=== PATIENT | female | born 1985 | race Caucasian/White ===

== ENCOUNTER 2016-05-03 20:03 | Emergency (ER) | payer MEDICAID, OTHER ==
[~2016-05-03] VITALS: Ht 162.6 cm; Wt 56.5 kg
[~2016-05-03 20:03] MED LIST: CIPR500T4 PO; ONDA1TAB16 PO; PERC5TAB12 PO
[2016-05-03 20:06] VITALS: BP 111/80; PULSE 69; RESP 16; TEMP 97.9; O2SAT 100
[2016-05-03] MEDS ORDERED: ACYC200C66 PO (20:34)
--- NOTE | 2016-05-03 20:41 | PD ---
HPI Chief Complaint: Skin Problem Time Seen by Provider: 20:35 Travel History International Travel<30 days: Yes Contact w/Intl Traveler<30days: [place] Country Traveled to: [facility] Traveled to known affect area: No History of Present Illness HPI 30-year-old female presents to the emergency room for evaluation of painful pustular/vesicular rash on the lower lip and left-sided and neck for the past day. Patient states the mouth lesion started first and she believes she may have spread it to her neck accidentally after touching it. Reports rash is painful to the touch and there is some deeper pain underneath. Patient denies fever, chills, nausea, vomiting, and malaise. She has been taking Tylenol for pain. Patient has history of herpes simplex. Never had shingles. PFSH Past Medical History Diminished Hearing: No Reproductive: Yes (ENDOMETRIOSIS) Immunizations Current: Yes Tetanus Vaccination: < 5 Years Influenza Vaccination: No ?: Not LMP: NOW Ovarian Cysts: Yes Social History Alcohol Use: Yes (occ) Tobacco Use: No Substance Use: No Allergies-Medications (Allergen,Severity, Reaction): Coded Allergies: No Known Allergies (Verified , PER IND/AUG ORDERS, 05/03/16) Reported Meds & Prescriptions Reported Meds & Active Scripts Active Acyclovir 200 Mg Cap 200 Mg PO 5 TIMES A DAY 5 Days Review of Systems Except as stated in HPI: all other systems reviewed are Neg Physical Exam Narrative GENERAL: Well-nourished, well-developed female in no acute distress. Afebrile. Ambulatory. SKIN: Warm and dry. There are vesicular and pustular grouped lesions to the left anterior neck. It is tender to palpation. There are also pustular, vesicular, grouped lesions on the lower lip bilaterally. HEAD: Normocephalic. EYES: No scleral icterus. No injection or drainage. NECK: Supple, trachea midline. No JVD or lymphadenopathy. Data Data Last Documented VS Vital Signs Date Time Temp Pulse Resp B/P Pulse Ox O2 Delivery O2 Flow Rate FiO2 05/03/16 20:06 97.9 69 16 111/80 100 MDM Medical Decision Making Medical Screen Exam Complete: Yes Emergency Medical Condition: Yes Medical Record Reviewed: Yes Differential Diagnosis Herpes simplex versus herpes zoster versus folliculitis Narrative Course 30-year-old female presents to the emergency room for evaluation of painful rash on her lower lip and left anterior neck since last night. Patient states rash started on her lip and spread to her neck shortly afterwards. She believes she has spread it to one area through contact. Exam reveals vesicular and pustular grouped lesions to the left anterior neck/chest that are tender to palpation. There are also pustular, vesicular, grouped lesions on the lower lip bilaterally. Physical exam is consistent with herpes simplex, not herpes zoster. Patient will be treated as such. Told to follow up with a primary care physician and return for worsening symptoms. She understands and agrees to plan. Diagnosis Primary Impression: Herpes simplex Referrals: Primary Care Physician Patient Instructions: General Instructions, Oral Herpes Simplex Virus Infections (ED) Additional Instructions: Rest and drink plenty of fluids. Acyclovir as directed, until gone. Follow-up with a primary care physician. Return to the emergency room for worsening symptoms. Med/Other Pt SpecificInfo: Prescription(s) given Scripts Acyclovir 200 Mg [id number] Mg PO 5 TIMES A DAY 5 Days Ref 0 Prov:Arie Hernandez MD 05/03/16 Disposition: 01 DISCHARGE HOME Condition: Stable Bety Chaudhry May 03, 2016 20:41
== END 2016-05-03 20:48 | disposition home or self-care (01) ==
LOC: PHEFT 20:03
DX: B00.1 Herpesviral vesicular dermatitis (principal)
CPT/HCPCS: 99282

== ENCOUNTER 2016-06-10 09:54 | Emergency (ER) | payer MEDICAID, OTHER ==
[~2016-06-10] VITALS: Ht 162.6 cm; Wt 55.0 kg
[~2016-06-10 09:54] MED LIST changes: +ACYC200C66 PO; -CIPR500T4 PO; -ONDA1TAB16 PO; -PERC5TAB12 PO
[2016-06-10 10:09] VITALS: BP 115/81; PULSE 60; RESP 16; TEMP 98; O2SAT 96
[2016-06-10 10:24] LABS: BLOOD, URINE NEG (NEG); GLUCOSE,URINE NEG (NEG); KETONE, URINE 40 mg/dL (NEG); NITRITE,URINE NEG (NEG)
[2016-06-10 10:30] LABS: PH, URINE GREATER/EQUAL 9.0 (5.0-8.5)
[2016-06-10 10:31] LABS: COMMENT (UR) CULT NOT INDICATED; CULTURE IF INDICATED CULT NOT INDICATED; METHOD OF COLLECTION CLEAN CATCH; URINE COLOR YELLOW (YELLW/STRAW)
[2016-06-10] MEDS ORDERED: SODIUM CHLOR 0.9% 1000 ML INJ 1,000 ML IV SCH (10:54)
[2016-06-10 10:59] VITALS: O2SAT 100
[2016-06-10] MEDS ORDERED: MORPHINE SULFATE 4 MG/ML INJ IV PUSH ONE (11:00)
[2016-06-10] MEDS ORDERED: ONDANSETRON HCL 4 MG/2 ML VIAL IVP ONE (11:00)
[2016-06-10] MEDS ORDERED: PANTOPRAZOLE SODIUM 40 MG VIAL IVP ONE (11:00)
[2016-06-10 11:17] LABS: AUTOMATED NEUTROPHIL # 10.4 TH/MM3 (1.8-7.7); BASOPHIL # 0.1 TH/MM3 (0-0.2); BASOPHIL % 1.1 % (0.0-2.0); EOSINOPHIL # 0.1 TH/MM3 (0-0.4); EOSINOPHIL % 0.7 % (0.0-4.0); HEMATOCRIT 41.1 % (35.0-46.0); HEMO FLAGS DIFF FINAL; LYMPH % 4.9 % (9.0-44.0); LYMPHOCYTE # 0.6 TH/MM3 (1.0-4.8); MEAN CELL VOLUME 92.1 FL (80.0-100.0); MEAN CORPUSCULAR HGB CONC 33.7 % (32.0-36.0); MONO % 5.7 % (0.0-8.0); NEUT % 87.6 % (16.0-70.0); PLATELET COUNT 241 TH/MM3 (150-450); RED BLOOD COUNT 4.47 MIL/MM3 (4.00-5.30); RED CELL DISTRIBUTION WIDTH 12.7 % (11.6-17.2); WHITE BLOOD COUNT 11.9 TH/MM3 (4.0-11.0)
[2016-06-10 11:21] LABS: CHLORIDE 107 MEQ/L (98-107); SODIUM (NA) 141 MEQ/L (136-145)
[2016-06-10 11:25] LABS: ANION GAP 8 MEQ/L (5-15); BICARBONATE 26.1 MEQ/L (21.0-32.0); BLOOD UREA NITROGEN 13 MG/DL (7-18)
[2016-06-10 11:28] LABS: ALT (GPT) 22 U/L (10-53); AST (GOT) 19 U/L (15-37); GLOMERULAR FILTRATION RATE 94 ML/MIN (>89)
[2016-06-10 11:29] LABS: TOTAL BILIRUBIN ADULT 0.7 MG/DL (0.2-1.0)
[2016-06-10 11:31] VITALS: BP 117/76; PULSE 66; RESP 17; O2SAT 100
[2016-06-10 11:31] LABS: ALKALINE PHOSPHATASE 43 U/L (45-117)
[2016-06-10] MEDS ORDERED: IOHEXOL 350 MG/ML 10 ML VIAL (for RAD DIAG) IV ONE (11:53)
--- NOTE | 2016-06-10 11:58 | PD ---
HPI Chief Complaint: GI Complaint Time Seen by Provider: 10:45 Travel History International Travel<30 days: Yes Contact w/Intl Traveler<30days: Yes Name of Country Traveled to: [facility] Traveled to known affect area: No History of Present Illness HPI 30-year-old female complains of abdominal pain with nausea vomiting and diarrhea. Patient states that the symptoms started yesterday. Patient states that she had colds wet parking chills intermittently since yesterday. Patient states that she has left in the vomitus and also in the stool. Patient has dysuria and frequency earlier today. Patient states that abdominal pain is cramping pain diffuse over the abdomen. Patient resides any pain radiation. Patient denies any vaginal discharge or bleeding. Patient denies any back pain. On a scale of 1-10 the pain is a 7. PFSH Past Medical History Medical History: Denies Significant Hx Diminished Hearing: No Reproductive: Yes (ENDOMETRIOSIS) Immunizations Current: Yes Tetanus Vaccination: > 5 Years Influenza Vaccination: No ?: Not LMP: 05/31/16 Ovarian Cysts: Yes Social History Alcohol Use: Yes (occ) Tobacco Use: No Substance Use: No Allergies-Medications (Allergen,Severity, Reaction): Coded Allergies: No Known Allergies (Verified , PER IND/AUG ORDERS, 06/10/16) Reported Meds & Prescriptions Reported Meds & Active Scripts Active No Active Prescriptions or Reported Medications Review of Systems General / Constitutional: No: Fever Eyes: No: Visual changes HENT: No: Headaches Cardiovascular: No: Chest Pain or Discomfort Respiratory: No: Shortness of Breath Gastrointestinal: Positive: Nausea, Vomiting, Diarrhea, Abdominal Pain Genitourinary: No: Dysuria Musculoskeletal: No: Pain Skin: No Rash Neurologic: No: Weakness Psychiatric: No: Depression Endocrine: No: Polydipsia Hematologic/Lymphatic: No: Easy Bruising Physical Exam Narrative GENERAL: Well-nourished, well-developed patient. SKIN: Warm and dry. HEAD: Normocephalic. EYES: No scleral icterus. No injection or drainage. NECK: Supple, trachea midline. No JVD or lymphadenopathy. CARDIOVASCULAR: Regular rate and rhythm without murmurs, gallops, or rubs. RESPIRATORY: Breath sounds equal bilaterally. No accessory muscle use. GASTROINTESTINAL: Abdomen soft, nondistended. Patient has moderate diffuse tenderness over the abdomen. No rebound tenderness. No mass. MUSCULOSKELETAL: No cyanosis, or edema. BACK: Nontender without obvious deformity. No CVA tenderness. Data Data Last Documented VS Vital Signs Date Time Temp Pulse Resp B/P Pulse Ox O2 Delivery O2 Flow Rate FiO2 06/10/16 11:31 66 17 117/76 100 Room Air 06/10/16 10:09 98.0 Orders Urinalysis - C+S If Indicated (06/10/16 10:13) Complete Blood Count With Diff (06/10/16 10:54) Comprehensive Metabolic Panel (06/10/16 10:54) Lipase (06/10/16 10:54) Ct Abd/Pel W Iv Contrast(Rout) (06/10/16 10:54) Iv Access Insert/Monitor (06/10/16 10:54) Ecg Monitoring (06/10/16 10:54) Oximetry (06/10/16 10:54) Morphine Inj (Morphine Inj) (06/10/16 11:00) Ondansetron Inj (Zofran Inj) (06/10/16 11:00) Pantoprazole Inj (Protonix Inj) (06/10/16 11:00) Sodium Chlor 0.9% 1000 Ml Inj (Ns 1000 M (06/10/16 10:54) Ed Urine Pregnancytest Poc (06/10/16 10:54) Iohexol 350 Inj (Omnipaque 350 Inj) (06/10/16 11:53) Labs Laboratory Tests Test 06/10/16 06/10/16 10:18 11:05 Urine Collection Type CLEAN CATCH Urine Color YELLOW Urine Turbidity CLEAR Urine pH GREATER/EQUAL 9.0 Urine Specific [place] 1.022 Urine Protein 30 mg/dL Urine Glucose (UA) NEG mg/dL Urine Ketones 40 mg/dL Urine Occult Blood NEG Urine Nitrite NEG Urine Bilirubin NEG Urine Leukocyte Esterase TRACE Urine WBC 3-5 /hpf Urine Squamous Epithelial 6-8 /hpf Cells Microscopic Urinalysis Comment CULT NOT INDICATED Urine Collection Time 10:18 White Blood Count 11.9 TH/MM3 Red Blood Count 4.47 MIL/MM3 Hemoglobin 13.8 GM/DL Hematocrit 41.1 % Mean Corpuscular Volume 92.1 FL Mean Corpuscular Hemoglobin 31.0 PG Mean Corpuscular Hemoglobin 33.7 % Concent Red Cell Distribution Width 12.7 % Platelet Count 241 TH/MM3 Mean Platelet Volume 9.6 FL Neutrophils (%) (Auto) 87.6 % Lymphocytes (%) (Auto) 4.9 % Monocytes (%) (Auto) 5.7 % Eosinophils (%) (Auto) 0.7 % Basophils (%) (Auto) 1.1 % Neutrophils # (Auto) 10.4 TH/MM3 Lymphocytes # (Auto) 0.6 TH/MM3 Monocytes # (Auto) 0.7 TH/MM3 Eosinophils # (Auto) 0.1 TH/MM3 Basophils # (Auto) 0.1 TH/MM3 CBC Comment DIFF FINAL Differential Comment Sodium Level 141 MEQ/L Potassium Level 4.0 MEQ/L Chloride Level 107 MEQ/L Carbon Dioxide Level 26.1 MEQ/L Anion Gap 8 MEQ/L Blood Urea Nitrogen 13 MG/DL Creatinine 0.73 MG/DL Estimat Glomerular Filtration 94 ML/MIN Rate Random Glucose 101 MG/DL Calcium Level 8.9 MG/DL Total Bilirubin 0.7 MG/DL Aspartate Amino Transf 19 U/L (AST/SGOT) Alanine Aminotransferase 22 U/L (ALT/SGPT) Alkaline Phosphatase 43 U/L Total Protein 7.8 GM/DL Albumin 4.2 GM/DL Lipase 66 U/L [facility] Medical Decision Making Medical Screen Exam Complete: Yes Emergency Medical Condition: Yes Interpretation(s) 1203 PM. CBC with WBC 11.9. Hemoglobin 13.8 hematocrit 41.1. 87 neutrophil. CMP within normal limit. UA is negative. Urine test negative. 1301 p.m. Differential Diagnosis Differential diagnosis including gastroenteritis, gastritis, PUD, pancreatitis, cholecystitis, colitis, UTI, pyelonephritis, nephrolithiasis . Narrative Course 30-year-old female with abdominal pain, nausea vomiting diarrhea and blood in the vomitus and in the stool. Normal saline solution 1 L IV bolus. Morphine 2 mg IV. Protonix 40 mg IV. Zofran 4 mg IV. Diagnosis Primary Impression: Gastroenteritis Patient Instructions: General Instructions Additional Instructions: Clear fluid for 24 hours and advance as tolerated. Take medication as needed. Follow-up with personal physician. Return if persistent problem or worse. Med/Other Pt SpecificInfo: Prescription(s) given Scripts Diphenoxylate-Atropine (Lomotil)2.5-0.025 Mg Tab1 Tab PO Q6H PRN (DIARRHEA) #10 TAB Ref 0 Prov:Arie Hernandez MD 06/10/16 Dicyclomine (Bentyl)20 Mg Tab20 Mg PO TID #15 TAB Prov:Arie Hernandez MD 06/10/16 Ondansetron Odt (Zofran Odt)4 Mg Tab4 Mg SL Q6HR PRN (Nausea/Vomiting) #10 TAB Prov:Arie Hernandez MD 06/10/16 Disposition: 01 DISCHARGE HOME Condition: Stable Arie Hernandez MD Jun 10, 2016 11:58
--- NOTE | 2016-06-10 12:20 | RADHPO ---
EXAM DATE/TIME: 06/10/2016 11:46 [facility] COMPARISON: CT ABDOMEN & PELVIS W CONTRAST, July 09, 2013, 1:55. INDICATIONS : Right lower quadrant pain with nausea, vomiting and diarrhea. IV CONTRAST: 75 cc Omnipaque 350 (iohexol) IV ORAL CONTRAST: No oral contrast ingested. RADIATION DOSE: 5.00 CTDIvol (mGy) MEDICAL HISTORY : Endometriosis. SURGICAL HISTORY : Orthopedic surgery. ENCOUNTER: Initial ACUITY: 1 day PAIN SCALE: 7/10 LOCATION: Right lower quadrant TECHNIQUE: Volumetric scanning of the abdomen and pelvis was performed. Using automated exposure control and ad justment of the mA and/or kV according to patient size, radiation dose was kept as low as reasonably achievable to obtain optimal diagnostic quality images. FINDINGS: LOWER LUNGS: The visualized lower lungs are clear. LIVER: Homogeneous density without lesion. There is stable mild low density around the portal triads in the liver suggesting edema. Given the stability this may represent a normal variant. There is no dilatio n of the biliary tree. No calcified gallstones. SPLEEN: Normal size without lesion. PANCREAS: Within normal limits. KIDNEYS: Normal in size and shape. There is no mass, stone or hydronephrosis. ADRENAL GLANDS: Within normal limits. VASCULAR: There is no aortic aneurysm. BOWEL/MESENTERY: The stomach, small bowel, and colon demonstrate no acute abnormality. There is no free intraperitone al air. The appendix is normal. There is a small volume of free fluid in the pelvis. ABDOMINAL WALL: Within normal limits. RETROPERITONEUM: There is no lymphadenopathy. BLADDER: No wall thickening or mass. REPRODUCTIVE: Within normal limits. There is an enhancing corpus luteal cyst in left ovary. INGUINAL: There is no lymphadenopathy or hernia. MUSCULOSKELETAL: Within normal limits for patient age. CONCLUSION: 1. No acute finding is identified to explain the clinical symptoms. The appendix is normal. 2. Small volume of simple appearing free fluid in the pelvis. Although nonspecific this may be physio logic. Dayday Parra MD on June 10, 2016 at 12:14 Board Certified Radiologist. This report was verified electronically.
[2016-06-10] MEDS ORDERED: BENT20TA PO (13:05)
[2016-06-10] MEDS ORDERED: LOMO2.5T PO (13:05)
[2016-06-10] MEDS ORDERED: ZOFR4TAB3 SL (13:05)
[2016-06-10 13:13] VITALS: BP 104/71; PULSE 69; RESP 17; O2SAT 98
== END 2016-06-10 13:27 | disposition home or self-care (01) ==
LOC: PHED 09:54
DX: K52.9 Noninfective gastroenteritis and colitis, unspecified (principal)
CPT/HCPCS: 74177; 80053; 81001; 83690; 84703; 85025; 96361; 96374; 96375; 99284; C9113; J2270; J2405; J7030; Q9967

== ENCOUNTER 2016-12-29 08:06 | Emergency (ER) | payer MEDICAID ==
[~2016-12-29] VITALS: Ht 162.6 cm; Wt 55.0 kg
[~2016-12-29 08:06] MED LIST changes: -ACYC200C66 PO; +BENT20TA PO; +LOMO2.5T PO; +ZOFR4TAB3 SL
[2016-12-29 08:10] VITALS: BP 116/76; PULSE 118; RESP 16; TEMP 98.7; O2SAT 98
[2016-12-29] MEDS ORDERED: TETANUS/DIPHTHERIA TOXOID ADULT 0.5 ML VIAL IM ONE (08:45)
[2016-12-29] MEDS ORDERED: LIDOCAINE 2%/EPINEPHrine 1:100,000 30ML MDV INFIL ONE (08:45)
[2016-12-29] MEDS ORDERED: DIPHTH/TETANUS/ACEL PERTUSSIS (BOOSTER) 0.5 ML VIAL/PFS IM ONE (08:45)
[2016-12-29] MEDS ORDERED: LIDOCAINE 2%/EPINEPHrine PF 1:200,000 20ML SDV INFIL ONE (09:00)
[2016-12-29] MEDS ORDERED: CEPH-460 PO (09:31)
--- NOTE | 2016-12-29 09:32 | PD ---
HPI Chief Complaint: Laceration/Skin Injury Time Seen by Provider: 08:39 Travel History International Travel<30 days: No Contact w/Intl Traveler<30days: No Traveled to known affect area: No History of Present Illness HPI Patient presents with lacerations to her right hand and forearm. States she was gardening this morning when she tried to force a tool into a corner and her hand went through a shed glass window. Unable to recall tetanus. Denies . Denies drug allergies. PFSH Past Medical History Diminished Hearing: No Reproductive: Yes (ENDOMETRIOSIS) Immunizations Current: Yes Influenza Vaccination: No ?: Not LMP: ONE DAY AGO Ovarian Cysts: Yes Social History Alcohol Use: Yes (occ) Tobacco Use: No Substance Use: No Allergies-Medications (Allergen,Severity, Reaction): Coded Allergies: No Known Allergies (Verified , PER IND/NOV ORDERS, 12/29/16) Reported Meds & Prescriptions Reported Meds & Active Scripts Active No Active Prescriptions or Reported Medications Review of Systems General / Constitutional: No: Fever Eyes: No: Visual changes HENT: No: Headaches Cardiovascular: No: Chest Pain or Discomfort Respiratory: No: Shortness of Breath Gastrointestinal: No: Abdominal Pain Genitourinary: No: Dysuria Musculoskeletal: No: Pain Skin: No Rash Neurologic: No: Weakness Psychiatric: No: Depression Endocrine: No: Polydipsia Hematologic/Lymphatic: No: Easy Bruising Physical Exam Narrative GENERAL: Well-nourished, well-developed patient. SKIN: Focused skin assessment warm/dry. HEAD: Normocephalic. EYES: No scleral icterus. No injection or drainage. NECK: Supple, trachea midline. No JVD or lymphadenopathy. CARDIOVASCULAR: Regular rate and rhythm without murmurs, gallops, or rubs. RESPIRATORY: Breath sounds equal bilaterally. No accessory muscle use. GASTROINTESTINAL: Abdomen soft, non-tender, nondistended. MUSCULOSKELETAL: No cyanosis, or edema. BACK: Nontender without obvious deformity. No CVA tenderness. Examination of the right dorsal ulnar aspect reveals a 1 cm laceration as well as a V-shaped laceration measuring approximately 3 cm. Right forearm just distal to the elbow lateral aspect reveals a 4 cm laceration. Multiple abrasions throughout the hand and forearm. Data Data Last Documented VS Vital Signs Date Time Temp Pulse Resp B/P (MAP) Pulse Ox O2 Delivery O2 Flow Rate FiO2 12/29/16 08:10 98.7 118 16 116/76 (89) 98 Room Air Orders Orders [id number] (Booster) Inj (Boostrix (12/29/16 08:45) Lidocai-Epi 2%-1:100,000 Inj (Xylocaine- (12/29/16 08:45) Tetanus/Diphtheria Tox Adult (Tetanus/Di (12/29/16 08:45) Lidoca-Epi Pf 2%-1:200,000 Inj (Xylocain (12/29/16 09:00) MDM Medical Decision Making Medical Screen Exam Complete: Yes Emergency Medical Condition: Yes Differential Diagnosis Laceration, foreign body, skin tear Narrative Course Assessment and plan discussed with patient at bedside. Tetanus updated. Lacerations repaired Procedures Procedure Narrative LACERATION LOCATION: Right dorsal ulnar hand and right lateral forearm LENGTH: 3 lacerations, 1 cm, 3 cm, 4 cm NUMBER OF STITCHES/RAMIREZ: 2 interrupted, 5 interrupted, 5 interrupted REPAIR: The area of the laceration was prepped with Betadine and sterilely draped. The laceration was infiltrated with 2% Xylocaine with epinephrine. The wound was copiously irrigated and explored without evidence of foreign body , tendon injury or neurovascular injury. The wound was closed using 4-0 Prolene. This was a single layer repair. A sterile dressing was applied. The patient was advised to keep the dressing clean and dry. Patient tolerated the procedure well. Diagnosis Primary Impression: Hand laceration Qualified Codes: S61.411A - Laceration without foreign body of right hand, initial encounter Additional Impression: Forearm laceration Qualified Codes: S51.811A - Laceration without foreign body of right forearm, initial encounter Patient Instructions: General Instructions Additional Instructions: Encouraged antibacterial soap and water 2 times per day with addition of antibiotic ointment. Follow-up with PCP. Return emergently with any onset of new symptoms. Suture removal 10-12 days. Motrin for pain Med/Other Pt SpecificInfo: Prescription(s) given Scripts Cephalexin (Keflex) 500 Mg Cap 500 MG PO Q12H for Infection for 7 Days, #14 CAP 0 Refills Prov: Taran Krishnan MD 12/29/16 Disposition: 01 DISCHARGE HOME Condition: Good Taran Krishnan MD Dec 29, 2016 09:31
== END 2016-12-29 09:40 | disposition home or self-care (01) ==
LOC: PHED 08:06
DX: S61.411A Laceration without foreign body of right hand, initial encounter (principal); W25.XXXA Contact with sharp glass, initial encounter
CPT/HCPCS: 12004; 90471; 90714

== ENCOUNTER 2017-09-16 16:50 | Emergency (ER) | payer MEDICAID ==
[~2017-09-16] VITALS: Ht 162.6 cm; Wt 57.4 kg
[~2017-09-16 16:50] MED LIST changes: -BENT20TA PO; +CEPH-460 PO; -LOMO2.5T PO; -ZOFR4TAB3 SL
[2017-09-16 16:56] VITALS: BP 109/60; PULSE 70; RESP 16; TEMP 98.3; O2SAT 98
--- NOTE | 2017-09-16 17:46 | PD ---
HPI Chief Complaint: Abdominal Pain Time Seen by Provider: 17:45 Travel History International Travel<30 days: No Contact w/Intl Traveler<30days: No Traveled to known affect area: No History of Present Illness HPI 31-year-old female came to the emergency room with multiple unrelated complaints including chest pain on the left-hand side without radiation, headache, dizziness for past 1 year and abdominal cramps with explosive diarrhea once a day especially in the morning for 3 months. Patient says that she has tried homeopathic medication recommended by the pharmacist up until 2 weeks ago but symptoms have not improved and in certain locations have worsened. She was mainly concerned about the chest pain since her father has history of heart attack at her age and who recommended that she should come to the emergency room to be checked. Vital signs are otherwise stable. Patient is not a smoker. No history of nausea or vomiting. She otherwise happens to be a healthy person and not on any medications. However she does not have a primary care. She says that nobody would accept her insurance and see new patients. Patient thinks she may have lost 3-5 pounds in 1 month. She is not sure. Appetite has been good. Headache is bitemporal without any radiation. None of these pains of any aggravating or relieving factors identified. PFSH Past Medical History Narrative Medical List of her past medical, surgical, social and family history is reviewed from the nursing note. Diminished Hearing: No Reproductive: Yes (ENDOMETRIOSIS) Immunizations Current: Yes Influenza Vaccination: No ?: Not LMP: 1 month ago Ovarian Cysts: Yes Social History Alcohol Use: Yes (occ) Tobacco Use: No Substance Use: No Allergies-Medications (Allergen,Severity, Reaction): Coded Allergies: No Known Allergies (Verified , PER IND/AUG ORDERS, 12/29/16) Comments No known drug allergies. Reported Meds & Prescriptions Reported Meds & Active Scripts Active Bentyl (Dicyclomine HCl) 10 Mg Cap 10 Mg PO TID PRN Fioricet (Scjmvyjkmy-Yierrkzhyvgia-Wkgwxbtv) 50-300-40 Mg Cap 1 Cap PO Q4H PRN Narrative Medication List of her home medications reviewed from the nursing note. Review of Systems Except as stated in HPI: all other systems reviewed are Neg Cardiovascular: Positive: Chest Pain or Discomfort Gastrointestinal: Positive: Diarrhea, Abdominal Pain Neurologic: Positive: Headache Physical Exam Narrative GENERAL: Awake, alert, anxious, no obvious distress SKIN: Focused skin assessment warm/dry. HEAD: Atraumatic. Normocephalic. EYES: Pupils equal and round. No scleral icterus. No injection or drainage. ENT: No nasal bleeding or discharge. Mucous membranes pink and moist. NECK: Trachea midline. No JVD. CARDIOVASCULAR: Regular rate and rhythm. No murmur appreciated. RESPIRATORY: No accessory muscle use. Clear to auscultation. Breath sounds equal bilaterally. GASTROINTESTINAL: Abdomen soft, non-tender, nondistended. Hepatic and splenic margins not palpable. MUSCULOSKELETAL: No obvious deformities. No clubbing. No cyanosis. No edema. NEUROLOGICAL: Awake and alert. No obvious cranial nerve deficits. Motor grossly within normal limits. Normal speech. PSYCHIATRIC: Appropriate mood and affect; insight and judgment normal. Data Data Last Documented VS Vital Signs Date Time Temp Pulse Resp B/P (MAP) Pulse Ox O2 Delivery O2 Flow Rate FiO2 09/16/17 19:57 62 18 105/71 (82) 100 09/16/17 18:24 Room Air 09/16/17 16:56 98.3 Orders Orders Electrocardiogram (09/16/17 18:02) Ckmb (Isoenzyme) Profile (09/16/17 18:02) Complete Blood Count With Diff (09/16/17 18:02) Comprehensive Metabolic Panel (09/16/17 18:02) Magnesium (Mg) (09/16/17 18:02) Troponin I (09/16/17 18:02) Ecg Monitoring (09/16/17 18:02) Bilateral Bp Monitoring (09/16/17 18:02) Iv Access Insert/Monitor (09/16/17 18:02) Oximetry (09/16/17 18:02) Oxygen Administration (09/16/17 18:02) Sodium Chloride 0.9% Flush (Ns Flush) (09/16/17 18:15) Chest, Pa & Lat (09/16/17 18:02) Urinalysis - C+S If Indicated (09/16/17 18:02) Ed Urine Pregnancytest Poc (09/16/17 18:02) Potassium Chloride Eff (K-Lyte Cl Eff) (09/16/17 18:45) Ed Discharge Order (09/16/17 19:17) Labs Laboratory Tests Test 09/16/17 18:22 White Blood Count 6.3 TH/MM3 Red Blood Count 3.99 MIL/MM3 Hemoglobin 12.4 GM/DL Hematocrit 37.6 % Mean Corpuscular Volume 94.1 FL Mean Corpuscular Hemoglobin 31.0 PG Mean Corpuscular Hemoglobin Concent 33.0 % Red Cell Distribution Width 11.5 % Platelet Count 194 TH/MM3 Mean Platelet Volume 10.2 FL Neutrophils (%) (Auto) 64.1 % Lymphocytes (%) (Auto) 22.8 % Monocytes (%) (Auto) 10.4 % Eosinophils (%) (Auto) 1.4 % Basophils (%) (Auto) 1.3 % Neutrophils # (Auto) 4.0 TH/MM3 Lymphocytes # (Auto) 1.4 TH/MM3 Monocytes # (Auto) 0.7 TH/MM3 Eosinophils # (Auto) 0.1 TH/MM3 Basophils # (Auto) 0.1 TH/MM3 CBC Comment DIFF FINAL Differential Comment Urine Color YELLOW Urine Turbidity CLEAR Urine pH 6.5 Urine Specific [place] LESS/EQUAL 1.005 Urine Protein NEG mg/dL Urine Glucose (UA) NEG mg/dL Urine Ketones NEG mg/dL Urine Occult Blood SMALL Urine Nitrite NEG Urine Bilirubin NEG Urine Urobilinogen 0.2 MG/DL Urine Leukocyte Esterase SMALL Urine RBC 0-3 /hpf Urine WBC 0-2 /hpf Urine Squamous Epithelial Cells 0-5 /hpf Urine Bacteria NONE /hpf Microscopic Urinalysis Comment CULT NOT INDICATED Blood Urea Nitrogen 11 MG/DL Creatinine 0.65 MG/DL Random Glucose 77 MG/DL Total Protein 6.9 GM/DL Albumin 3.8 GM/DL Calcium Level 8.3 MG/DL Magnesium Level 2.2 MG/DL Alkaline Phosphatase 39 U/L Aspartate Amino Transf (AST/SGOT) 14 U/L Alanine Aminotransferase (ALT/SGPT) 18 U/L Total Bilirubin 0.4 MG/DL Sodium Level 140 MEQ/L Potassium Level 3.3 MEQ/L Chloride Level 107 MEQ/L Carbon Dioxide Level 23.9 MEQ/L Anion Gap 9 MEQ/L Estimat Glomerular Filtration Rate 106 ML/MIN Total Creatine Kinase 68 U/L Troponin I LESS THAN 0.02 NG/ML [facility] Medical Decision Making Medical Screen Exam Complete: Yes Emergency Medical Condition: Yes Medical Record Reviewed: Yes Interpretation(s) Twelve-lead EKG was reviewed by me. Normal sinus rhythm, normal axis, nonspecific ST-T wave changes, bradycardia. Heart rate of 58 bpm. Differential Diagnosis ACS, IBS, migraine, anxiety, dehydration Narrative Course 7:20 PM blood test results are back. Potassium is slightly low. I have ordered for p.o. replacement. Rest of the blood test results have come back to be within normal limit. UA is negative. Chest x-ray was read by the radiologist negative. At this point given the chronicity of her symptoms and not much relation to each other I have decided not to pursue these with any further tests. I have recommended that she should see a primary care. I will give her the address for [facility] where she can follow-up and if any further tests needed could be ordered from there. Procedures EKG Prior to Arrival: No Diagnosis Primary Impression: Headache Qualified Codes: R51 - Headache Additional Impressions: Chronic chest pain Chronic diarrhea Referrals: [facility] 1 week Additional Instructions: Please follow-up with [facility] whose address has been given to you on this discharge instruction. Return to the ER if condition worsens or any other new concerns. Do not watch TV, computer screen, smart phone screen for next 48 hours. Coffee or caffeinated beverages would be helpful for headache. Not drink alcohol especially wine or a cheese since these tend to worsen headaches. Take the medication as per prescription direction. Med/Other Pt SpecificInfo: Prescription(s) given Scripts Dicyclomine (Bentyl) 10 Mg Cap 10 MG PO TID Y for Bowel Management, #15 CAP 0 Refills Prov: Crystal Peterson MD 09/16/17 Dkukrrtcmx-Mqoutnnitecys-Eavqwvzm (Fioricet) 50-300-40 Mg Cap 1 CAP PO Q4H Y for HEADACHE, #15 CAP 0 Refills Prov: Crystal Peterson MD 09/16/17 Disposition: 01 DISCHARGE HOME Condition: Stable Crystal Peterson MD Sep 16, 2017 17:46
[2017-09-16] MEDS ORDERED: SODIUM CHLORIDE 0.9% FLUSH 10 ML FLUSH IVF PRN (18:15)
[2017-09-16 18:24] VITALS: RESP 16; O2SAT 100
[2017-09-16 18:28] VITALS: BP_SYST 105; BP_SYST 106; BP_DIAS 73; BP_DIAS 74
[2017-09-16 18:30] LABS: BASOPHIL # 0.1 TH/MM3 (0-0.2); BASOPHIL % 1.3 % (0.0-2.0); BILIRUBIN, URINE NEG (NEG); BLOOD, URINE SMALL (NEG); EOSINOPHIL # 0.1 TH/MM3 (0-0.4); EOSINOPHIL % 1.4 % (0.0-4.0); GLUCOSE,URINE NEG (NEG); HEMATOCRIT 37.6 % (35.0-46.0); HEMOGLOBIN 12.4 GM/DL (11.6-15.3); KETONE, URINE NEG (NEG); LYMPH % 22.8 % (9.0-44.0); LYMPHOCYTE # 1.4 TH/MM3 (1.0-4.8); MEAN CELL VOLUME 94.1 FL (80.0-100.0); MEAN PLATELET VOLUME 10.2 FL (7.0-11.0); MONO % 10.4 % (0.0-8.0); MONOCYTE # 0.7 TH/MM3 (0-0.9); NEUT % 64.1 % (16.0-70.0); NITRITE,URINE NEG (NEG); PH, URINE 6.5 (5.0-8.5); PLATELET COUNT 194 TH/MM3 (150-450); RED BLOOD COUNT 3.99 MIL/MM3 (4.00-5.30); RED CELL DISTRIBUTION WIDTH 11.5 % (11.6-17.2); URINE COLOR YELLOW (YELLW/STRAW); URINE LEUKOCYTE ESTERASE SMALL (NEG); WHITE BLOOD COUNT 6.3 TH/MM3 (4.0-11.0)
[2017-09-16 18:36] LABS: RBC, URINE 0-3 /hpf (0-3); WBC, URINE 0-2 /hpf (0-5)
[2017-09-16 18:37] LABS: SQUAMOUS EPITHELIAL CELL URINE 0-5 /hpf (0-5)
[2017-09-16 18:40] LABS: CHLORIDE 107 MEQ/L (98-107); SODIUM (NA) 140 MEQ/L (136-145)
[2017-09-16 18:43] LABS: ALBUMIN 3.8 GM/DL (3.4-5.0); BICARBONATE 23.9 MEQ/L (21.0-32.0); CALCIUM 8.3 MG/DL (8.5-10.1); GLUCOSE,RANDOM 77 MG/DL (74-106); MAGNESIUM 2.2 MG/DL (1.5-2.5)
[2017-09-16 18:44] LABS: BLOOD UREA NITROGEN 11 MG/DL (7-18)
[2017-09-16] MEDS ORDERED: POTASSIUM CHLORIDE 25 MEQ EFFERVESCENT TAB PO ONE (18:45)
[2017-09-16 18:46] LABS: ALT (GPT) 18 U/L (10-53)
--- NOTE | 2017-09-16 18:46 | RADRPT ---
EXAM DATE: 09/16/2017 6:40 PM EDT AGE/SEX: 31 years / Female INDICATIONS: Chest pain and shortness of breath. CLINICAL DATA: This is the patient's initial encounter. Patient reports that signs and symptoms have been present for 1 week and indicates a pain score of 4/10. MEDICAL/SURGICAL HISTORY: None. None. COMPARISON: No prior exams available for comparison. FINDINGS: PA and lateral views of the chest demonstrate the lungs to be symmetrically aerated without evidence of mass, infiltrate or effusion. The cardiomediastinal contours are unremarkable. Osseous structures are intact. CONCLUSION: Negative examination. Electronically signed by: Alex Ramsay MD 09/16/2017 6:45 PM EDT
[2017-09-16 18:47] LABS: AST (GOT) 14 U/L (15-37); CREATININE 0.65 MG/DL (0.50-1.00); GLOMERULAR FILTRATION RATE 106 ML/MIN (>89)
[2017-09-16 18:48] LABS: TOTAL BILIRUBIN ADULT 0.4 MG/DL (0.2-1.0); TOTAL PROTEIN 6.9 GM/DL (6.4-8.2)
[2017-09-16 18:49] LABS: ALKALINE PHOSPHATASE 39 U/L (45-117)
[2017-09-16 18:52] LABS: TROPONIN I LESS THAN 0.02 NG/ML (0.02-0.05)
[2017-09-16] MEDS ORDERED: DICY10 PO (19:23)
[2017-09-16] MEDS ORDERED: BUTA1CAP PO (19:23)
[2017-09-16 19:57] VITALS: BP 105/71
--- NOTE | 2017-09-17 09:11 | EKG ---
Date Performed: 09/16/2017 Time Performed: 18:12:35 PTAGE: 31 years EKG: SINUS BRADYCARDIA BORDERLINE ECG NO PREVIOUS TRACING DOCTOR: Zak Amin Interpretating Date/Time 09/17/2017 09:10:52
== END 2017-09-16 20:04 | disposition home or self-care (01) ==
LOC: PHED 16:50
DX: R51 Headache (principal); G89.29 Other chronic pain; R07.9 Chest pain, unspecified; K52.9 Noninfective gastroenteritis and colitis, unspecified; E87.6 Hypokalemia; R94.31 Abnormal electrocardiogram [ECG] [EKG]; R00.1 Bradycardia, unspecified; R10.9 Unspecified abdominal pain
CPT/HCPCS: 71046; 80053; 81001; 82550; 83735; 84484; 84703; 85025; 93005; 99285